=== PATIENT | female | born 1930 | race Caucasian/White ===

== ENCOUNTER 2017-06-01 15:18 | Inpatient (IN) | payer MEDICARE ==
[2017-06-01 16:20] LABS: ADD MAN DIFF? NO
[2017-06-01 16:24] LABS: BASO % 1 % (0-3); EOS % 1 % (0-3); HEMATOCRIT 38.2 % (36.0-47.0); HEMOGLOBIN 12.7 g/dL (12.0-15.5); LYMPH # 0.8 x10^3/uL (1.0-4.8); LYMPH % 12 % (24-48); MEAN CORPUSCULAR HEMOGLOBIN 32 pg (25-35); MEAN CORPUSCULAR HGB CONC 33 g/dL (31-37); MEAN CORPUSCULAR VOLUME 96 fL (79-100); MONO # 0.6 x10^3/uL (0.0-1.1); MONO % 10 % (0-9); NEUT # 5.1 x10^3uL (1.8-7.7); NEUT % 77 % (31-73); PLATELET COUNT 318 x10^3/uL (140-400); RED CELL DISTRIBUTION WIDTH 13.9 % (11.5-14.5); WHITE BLOOD COUNT 6.6 x10^3/uL (4.0-11.0)
[2017-06-01 16:33] LABS: ANION GAP 7 (6-14); BLOOD UREA NITROGEN 7 mg/dL (7-20); BUN/CREATININE RATIO 14 (6-20); CALCIUM 9.3 mg/dL (8.5-10.1); CARBON DIOXIDE 32 mmol/L (21-32); CHLORIDE 103 mmol/L (98-107); CREATININE 0.5 mg/dL (0.6-1.0); GLUCOSE 100 mg/dL (70-99); POTASSIUM 3.3 mmol/L (3.5-5.1); SODIUM 142 mmol/L (136-145)
[2017-06-01 16:38] LABS: ALBUMIN 3.2 g/dL (3.4-5.0); ALBUMIN/GLOBULIN RATIO 0.7 (1.0-1.7); ALK PHOS 96 U/L (46-116); ALT (SGPT) 20 U/L (14-59); AST (SGOT) 19 U/L (15-37); TOTAL BILIRUBIN 0.6 mg/dL (0.2-1.0); TOTAL PROTEIN 7.8 g/dL (6.4-8.2)
[2017-06-01 16:40] LABS: INFLUENZA A PATIENT NEGATIVE (NEGATIVE); INFLUENZA B PATIENT NEGATIVE (NEGATIVE); OBC FLU VALID
[2017-06-01 16:43] LABS: TROPONINI < 0.017 ng/mL (0.000-0.055)
[2017-06-01 17:00] LABS: BILIRUBIN,URINE NEGATIVE (NEG); COLOR,URINE YELLOW; GLUCOSE,URINE NEGATIVE (NEG); NITRITE,URINE NEGATIVE (NEG); PH,URINE 7.5; PROTEIN,URINE NEGATIVE (NEG-TRACE)
[2017-06-01 17:08] LABS: CLARITY,URINE HAZY
[2017-06-01 17:12] LABS: BACTERIA,URINE MODERATE /HPF (0-FEW); RBC,URINE 0 /HPF (0-2); SQUAMOUS EPITHELIAL CELL,UR OCC /LPF
[2017-06-01] MEDS ORDERED: ALPRAZolam 0.5 MG TABLET PO (18:15)
[2017-06-01] MEDS ORDERED: ONDANSETRON PF 4 MG/2 ML VIAL. IV ×2 (18:15→18:30)
[2017-06-01] MEDS: POTASSIUM CHLORIDE 20 MEQ TABLET.ER. PO (18:26)
[2017-06-01 19:25] LABS: SEDIMENTATION RATE 50 (0-25)
[2017-06-01] MEDS: LACTOBACILLUS RHAMNOSUS GG 1 CAPSULE. PO (22:37)
[2017-06-01] MEDS: ENOXAPARIN 30 MG/0.3 ML SYRINGE. SQ (22:38)
[2017-06-02 05:25] LABS: ADD MAN DIFF? NO
[2017-06-02 05:55] LABS: ANION GAP 5 (6-14); BLOOD UREA NITROGEN 9 mg/dL (7-20); CALCIUM 8.8 mg/dL (8.5-10.1); CARBON DIOXIDE 31 mmol/L (21-32); CHLORIDE 106 mmol/L (98-107); CREATININE 0.5 mg/dL (0.6-1.0); GLUCOSE 93 mg/dL (70-99); POTASSIUM 3.9 mmol/L (3.5-5.1); SODIUM 142 mmol/L (136-145)
[2017-06-02 06:04] LABS: BASO % 0 % (0-3); EOS # 0.1 x10^3/uL (0.0-0.7); EOS % 1 % (0-3); HEMATOCRIT 35.2 % (36.0-47.0); HEMOGLOBIN 11.6 g/dL (12.0-15.5); LYMPH # 0.9 x10^3/uL (1.0-4.8); LYMPH % 18 % (24-48); MEAN CORPUSCULAR HEMOGLOBIN 32 pg (25-35); MEAN CORPUSCULAR HGB CONC 33 g/dL (31-37); MEAN CORPUSCULAR VOLUME 96 fL (79-100); MONO # 0.6 x10^3/uL (0.0-1.1); MONO % 12 % (0-9); NEUT # 3.5 x10^3uL (1.8-7.7); NEUT % 68 % (31-73); PLATELET COUNT 312 x10^3/uL (140-400); RED BLOOD COUNT 3.67 x10^6/uL (3.50-5.40); RED CELL DISTRIBUTION WIDTH 14.1 % (11.5-14.5); WHITE BLOOD COUNT 5.2 x10^3/uL (4.0-11.0)
[2017-06-02] MEDS: hydroCHLOROthiazide 25 MG TABLET PO (08:20)
[2017-06-02] MEDS: VITAMIN B12,B9,B6 COMPLEX 1 TABLET. PO (08:20)
[2017-06-02] MEDS: LISINOPRIL 20 MG TABLET PO (08:22)
[2017-06-02] MEDS: amLODIPine BESYLATE 10 MG TABLET PO (08:23)
[2017-06-02] MEDS: LACTOBACILLUS RHAMNOSUS GG 1 CAPSULE. PO ×2 (08:23→20:19)
[2017-06-02] MEDS: IV NORMAL SALINE 1000ML BAG 1,000 ML IV (12:33)
[2017-06-02] MEDS: VITS A & D/LANOLIN TOPICAL OINTMENT 56GM TUBE. TP (13:55)
[2017-06-02] MEDS: ACETAMINOPHEN 500 MG TABLET PO (16:13)
[2017-06-02] MEDS: cefTRIAXone IV Push 1 GM VIAL. IVP (17:33)
[2017-06-02] MEDS: ENOXAPARIN 30 MG/0.3 ML SYRINGE. SQ (20:23)
[2017-06-03] MEDS: IV NORMAL SALINE 1000ML BAG 1,000 ML IV ×2 (02:50→21:55)
[2017-06-03 06:08] LABS: ADD MAN DIFF? NO
[2017-06-03 06:20] LABS: BASO % 1 % (0-3); EOS # 0.1 x10^3/uL (0.0-0.7); EOS % 2 % (0-3); HEMATOCRIT 33.7 % (36.0-47.0); HEMOGLOBIN 10.9 g/dL (12.0-15.5); LYMPH % 21 % (24-48); MEAN CORPUSCULAR HEMOGLOBIN 31 pg (25-35); MEAN CORPUSCULAR HGB CONC 32 g/dL (31-37); MEAN CORPUSCULAR VOLUME 97 fL (79-100); MONO # 0.6 x10^3/uL (0.0-1.1); MONO % 12 % (0-9); NEUT # 3.2 x10^3uL (1.8-7.7); NEUT % 65 % (31-73); PLATELET COUNT 251 x10^3/uL (140-400); RED BLOOD COUNT 3.49 x10^6/uL (3.50-5.40); WHITE BLOOD COUNT 4.9 x10^3/uL (4.0-11.0)
[2017-06-03 06:52] LABS: ANION GAP 6 (6-14); BLOOD UREA NITROGEN 20 mg/dL (7-20); CALCIUM 8.6 mg/dL (8.5-10.1); CARBON DIOXIDE 27 mmol/L (21-32); CHLORIDE 109 mmol/L (98-107); CREATININE 0.6 mg/dL (0.6-1.0); GFR 94.8; GLUCOSE 83 mg/dL (70-99); SODIUM 142 mmol/L (136-145)
[2017-06-03] MEDS: LISINOPRIL 20 MG TABLET PO (09:00)
[2017-06-03] MEDS: amLODIPine BESYLATE 10 MG TABLET PO (09:00)
[2017-06-03] MEDS: hydroCHLOROthiazide 25 MG TABLET PO (09:00)
[2017-06-03] MEDS: VITAMIN B12,B9,B6 COMPLEX 1 TABLET. PO (09:42)
[2017-06-03] MEDS: LACTOBACILLUS RHAMNOSUS GG 1 CAPSULE. PO ×2 (09:43→20:53)
[2017-06-03] MEDS: cefTRIAXone IV Push 1 GM VIAL. IVP (17:31)
[2017-06-03] MEDS: ENOXAPARIN 30 MG/0.3 ML SYRINGE. SQ (20:54)
[2017-06-04] MEDS: IV NORMAL SALINE 1000ML BAG 1,000 ML IV ×2 (04:00→11:34)
[2017-06-04 05:44] LABS: ADD MAN DIFF? NO
[2017-06-04 06:02] LABS: BASO % 1 % (0-3); EOS # 0.1 x10^3/uL (0.0-0.7); EOS % 2 % (0-3); HEMATOCRIT 32.2 % (36.0-47.0); HEMOGLOBIN 10.9 g/dL (12.0-15.5); LYMPH # 0.9 x10^3/uL (1.0-4.8); LYMPH % 17 % (24-48); MEAN CORPUSCULAR HEMOGLOBIN 32 pg (25-35); MEAN CORPUSCULAR HGB CONC 34 g/dL (31-37); MEAN CORPUSCULAR VOLUME 96 fL (79-100); MONO # 0.5 x10^3/uL (0.0-1.1); MONO % 10 % (0-9); NEUT # 3.7 x10^3uL (1.8-7.7); NEUT % 71 % (31-73); PLATELET COUNT 265 x10^3/uL (140-400); RED BLOOD COUNT 3.36 x10^6/uL (3.50-5.40); RED CELL DISTRIBUTION WIDTH 13.7 % (11.5-14.5); WHITE BLOOD COUNT 5.2 x10^3/uL (4.0-11.0)
[2017-06-04 06:21] LABS: ANION GAP 6 (6-14); BLOOD UREA NITROGEN 13 mg/dL (7-20); CALCIUM 8.4 mg/dL (8.5-10.1); CARBON DIOXIDE 28 mmol/L (21-32); CHLORIDE 108 mmol/L (98-107); CREATININE 0.5 mg/dL (0.6-1.0); GLUCOSE 88 mg/dL (70-99); POTASSIUM 3.8 mmol/L (3.5-5.1); SODIUM 142 mmol/L (136-145)
[2017-06-04] MEDS: hydroCHLOROthiazide 25 MG TABLET PO (08:35)
[2017-06-04] MEDS: VITAMIN B12,B9,B6 COMPLEX 1 TABLET. PO (08:35)
[2017-06-04] MEDS: LACTOBACILLUS RHAMNOSUS GG 1 CAPSULE. PO (08:35)
[2017-06-04] MEDS: LISINOPRIL 20 MG TABLET PO (08:36)
== END 2017-06-04 16:50 | DRG 592 ==
LOC: ER 15:18 → 5 SOUTH 18:00
DX: L89.151 Pressure ulcer of sacral region, stage 1 (principal); R53.2 Functional quadriplegia; N39.0 Urinary tract infection, site not specified; I73.9 Peripheral vascular disease, unspecified; E44.1 Mild protein-calorie malnutrition; Z68.1 Body mass index [BMI] 19.9 or less, adult; R62.7 Adult failure to thrive; E87.6 Hypokalemia; B35.1 Tinea unguium; I10 Essential (primary) hypertension; L60.0 Ingrowing nail; L60.1 Onycholysis; R32 Unspecified urinary incontinence; Z96.649 Presence of unspecified artificial hip joint; Z90.710 Acquired absence of both cervix and uterus; Z91.81 History of falling; Z85.3 Personal history of malignant neoplasm of breast; Z99.3 Dependence on wheelchair
CPT/HCPCS: 36415; 51701; 71045; 80048; 80053; 81001; 84484; 85025; 85651; 87040; 87086; 87186; 87804; 87804-59; 92610-GN; 93005; 96365; 97116-GP; 97162-GP; 97166-GO; 99285; 99285-25; J0690; J0696; J1650; J7030

== ENCOUNTER 2017-08-21 19:38 | Inpatient (IN) | payer MEDICARE ==
[2017-08-21 21:13] LABS: ADD MAN DIFF? NO
[2017-08-21 21:15] LABS: BASO % 1 % (0-3); EOS % 0 % (0-3); HEMATOCRIT 34.7 % (36.0-47.0); HEMOGLOBIN 12.1 g/dL (12.0-15.5); LYMPH # 0.6 x10^3/uL (1.0-4.8); LYMPH % 8 % (24-48); MEAN CORPUSCULAR HEMOGLOBIN 33 pg (25-35); MEAN CORPUSCULAR HGB CONC 35 g/dL (31-37); MEAN CORPUSCULAR VOLUME 94 fL (79-100); MONO # 0.5 x10^3/uL (0.0-1.1); MONO % 7 % (0-9); NEUT # 5.8 x10^3uL (1.8-7.7); NEUT % 84 % (31-73); PLATELET COUNT 296 x10^3/uL (140-400); RED BLOOD COUNT 3.69 x10^6/uL (3.50-5.40)
[2017-08-21 21:28] LABS: ANION GAP 13 (6-14); BLOOD UREA NITROGEN 16 mg/dL (7-20); CALCIUM 10.2 mg/dL (8.5-10.1); CARBON DIOXIDE 29 mmol/L (21-32); CHLORIDE 106 mmol/L (98-107); CREATININE 0.7 mg/dL (0.6-1.0); GFR 79.3; GLUCOSE 70 mg/dL (70-99); POTASSIUM 3.4 mmol/L (3.5-5.1); SODIUM 148 mmol/L (136-145)
[2017-08-21 21:34] LABS: ALBUMIN 3.1 g/dL (3.4-5.0); ALK PHOS 89 U/L (46-116); ALT (SGPT) 14 U/L (14-59); AST (SGOT) 24 U/L (15-37); DIRECT BILIRUBIN 0.5 mg/dL (0.0-0.2); LIPASE 64 U/L (73-393); MAGNESIUM 1.7 mg/dL (1.8-2.4); TOTAL BILIRUBIN 1.2 mg/dL (0.2-1.0); TOTAL PROTEIN 7.6 g/dL (6.4-8.2)
[2017-08-21] MEDS: CLINDAMYCIN 600MG PREMIX 50 ML IV (21:35)
[2017-08-21 21:36] LABS: TROPONINI < 0.017 ng/mL (0.000-0.055)
[2017-08-21] MEDS: IV NORMAL SALINE 1000ML BAG 1,000 ML IV (21:36)
[2017-08-21 21:42] LABS: CKMB INDEX 2.3 % (0-4); CKMB MASS 2.4 ng/mL (0.0-3.6); CREATINE KINASE 103 U/L (26-192)
[2017-08-21 21:42] LABS: NT-PRO BNP 829 pg/mL (0-449); THYROID STIM HORMONE (TSH) 2.566 uIU/mL (0.358-3.74)
[2017-08-21] MEDS ORDERED: ONDANSETRON PF 4 MG/2 ML VIAL. IV (22:15)
[2017-08-21] MEDS: IV DEXTROSE 5 %-0.45 % NACL 1,000 ML IV (23:01)
[2017-08-22] MEDS ORDERED: levOFLOXacin PER PHARMACY. MC (00:30)
[2017-08-22] MEDS: cefTRIAXone IV Push 1 GM VIAL. IVP (00:46)
[2017-08-22 04:52] LABS: ADD MAN DIFF? NO
[2017-08-22 05:15] LABS: BASO % 1 % (0-3); EOS % 1 % (0-3); HEMATOCRIT 28.8 % (36.0-47.0); HEMOGLOBIN 9.9 g/dL (12.0-15.5); LYMPH # 0.9 x10^3/uL (1.0-4.8); LYMPH % 16 % (24-48); MEAN CORPUSCULAR HEMOGLOBIN 32 pg (25-35); MEAN CORPUSCULAR HGB CONC 34 g/dL (31-37); MEAN CORPUSCULAR VOLUME 94 fL (79-100); MONO # 0.5 x10^3/uL (0.0-1.1); MONO % 9 % (0-9); NEUT # 4.2 x10^3uL (1.8-7.7); NEUT % 74 % (31-73); PLATELET COUNT 236 x10^3/uL (140-400); RED BLOOD COUNT 3.06 x10^6/uL (3.50-5.40); RED CELL DISTRIBUTION WIDTH 13.8 % (11.5-14.5); WHITE BLOOD COUNT 5.7 x10^3/uL (4.0-11.0)
[2017-08-22 05:34] LABS: ANION GAP 7 (6-14); BLOOD UREA NITROGEN 11 mg/dL (7-20); CALCIUM 9.1 mg/dL (8.5-10.1); CARBON DIOXIDE 30 mmol/L (21-32); CHLORIDE 105 mmol/L (98-107); CREATININE 0.7 mg/dL (0.6-1.0); GFR 79.3; GLUCOSE 79 mg/dL (70-99); SODIUM 142 mmol/L (136-145)
[2017-08-22] MEDS: CLINDAMYCIN 600MG PREMIX 50 ML IV ×3 (05:39→20:40)
[2017-08-22 05:47] LABS: POTASSIUM 2.8 mmol/L (3.5-5.1)
[2017-08-22] MEDS: POTASSIUM CHLORIDE 20 MEQ TABLET.ER. PO ×2 (08:32→09:15)
[2017-08-22 10:30] LABS: % SAT IRON 30 % (15-34); IRON,SERUM 52 ug/dL (50-170)
[2017-08-22] MEDS: MULTIVITAMIN with MINERAL TABLET. PO (10:31)
[2017-08-22] MEDS: LISINOPRIL 10 MG TABLET PO (10:31)
[2017-08-22] MEDS: FLUTICASONE 50MCG/NASAL SPRAY 16GM BOTTLE. NS (10:32)
[2017-08-22] MEDS: MAGNESIUM SULFATE 2GM 50 ML IV (15:38)
[2017-08-22] MEDS: ENOXAPARIN 30 MG/0.3 ML SYRINGE. SQ (15:38)
[2017-08-22] MEDS: LACTOBACILLUS RHAMNOSUS GG 1 CAPSULE. PO (20:40)
[2017-08-23] MEDS: cefTRIAXone IV Push 1 GM VIAL. IVP (00:11)
[2017-08-23 03:48] LABS: HEMATOCRIT 28.3 % (36.0-47.0); HEMOGLOBIN 9.9 g/dL (12.0-15.5); MEAN CORPUSCULAR HEMOGLOBIN 33 pg (25-35); MEAN CORPUSCULAR HGB CONC 35 g/dL (31-37); MEAN CORPUSCULAR VOLUME 93 fL (79-100); PLATELET COUNT 218 x10^3/uL (140-400); RED BLOOD COUNT 3.03 x10^6/uL (3.50-5.40); RED CELL DISTRIBUTION WIDTH 13.8 % (11.5-14.5)
[2017-08-23 05:42] LABS: ALBUMIN/GLOBULIN RATIO 0.6 (1.0-1.7); ALK PHOS 75 U/L (46-116); ALT (SGPT) 11 U/L (14-59); ANION GAP 5 (6-14); AST (SGOT) 19 U/L (15-37); BLOOD UREA NITROGEN 13 mg/dL (7-20); BUN/CREATININE RATIO 16 (6-20); CALCIUM 9.2 mg/dL (8.5-10.1); CARBON DIOXIDE 32 mmol/L (21-32); CHLORIDE 105 mmol/L (98-107); CREATININE 0.8 mg/dL (0.6-1.0); GLUCOSE 85 mg/dL (70-99); POTASSIUM 3.1 mmol/L (3.5-5.1); SODIUM 142 mmol/L (136-145); TOTAL BILIRUBIN 0.3 mg/dL (0.2-1.0); TOTAL PROTEIN 5.4 g/dL (6.4-8.2)
[2017-08-23] MEDS: CLINDAMYCIN 600MG PREMIX 50 ML IV ×3 (06:00→21:45)
[2017-08-23] MEDS: MULTIVITAMIN with MINERAL TABLET. PO (08:50)
[2017-08-23] MEDS: FLUTICASONE 50MCG/NASAL SPRAY 16GM BOTTLE. NS (08:50)
[2017-08-23] MEDS: LISINOPRIL 10 MG TABLET PO (08:50)
[2017-08-23] MEDS: LACTOBACILLUS RHAMNOSUS GG 1 CAPSULE. PO ×2 (08:50→20:46)
[2017-08-23 09:15] LABS: VITAMIN-B12 1044 pg/mL (247-911)
[2017-08-23 09:16] LABS: FOLATE 11.58 ng/ml (3.2-20.0)
[2017-08-23] MEDS: ENOXAPARIN 30 MG/0.3 ML SYRINGE. SQ (15:08)
[2017-08-23] MEDS: POTASSIUM CHLORIDE 20 MEQ TABLET.ER. PO (18:05)
[2017-08-24] MEDS: cefTRIAXone IV Push 1 GM VIAL. IVP (00:25)
[2017-08-24] MEDS: CLINDAMYCIN 600MG PREMIX 50 ML IV (05:40)
[2017-08-24] MEDS: MULTIVITAMIN with MINERAL TABLET. PO (08:21)
[2017-08-24] MEDS: LISINOPRIL 10 MG TABLET PO (08:21)
[2017-08-24] MEDS: FLUTICASONE 50MCG/NASAL SPRAY 16GM BOTTLE. NS (08:22)
[2017-08-24] MEDS: LACTOBACILLUS RHAMNOSUS GG 1 CAPSULE. PO ×2 (08:22→21:41)
[2017-08-24 09:04] LABS: HEMATOCRIT 31.2 % (36.0-47.0); HEMOGLOBIN 10.5 g/dL (12.0-15.5); MEAN CORPUSCULAR HEMOGLOBIN 32 pg (25-35); MEAN CORPUSCULAR HGB CONC 34 g/dL (31-37); MEAN CORPUSCULAR VOLUME 94 fL (79-100); PLATELET COUNT 243 x10^3/uL (140-400); RED CELL DISTRIBUTION WIDTH 14.3 % (11.5-14.5); WHITE BLOOD COUNT 5.2 x10^3/uL (4.0-11.0)
[2017-08-24 09:30] LABS: ALBUMIN 2.1 g/dL (3.4-5.0); ALBUMIN/GLOBULIN RATIO 0.6 (1.0-1.7); ALK PHOS 67 U/L (46-116); ALT (SGPT) 14 U/L (14-59); ANION GAP 3 (6-14); AST (SGOT) 21 U/L (15-37); BLOOD UREA NITROGEN 12 mg/dL (7-20); BUN/CREATININE RATIO 20 (6-20); CARBON DIOXIDE 32 mmol/L (21-32); CHLORIDE 108 mmol/L (98-107); CREATININE 0.6 mg/dL (0.6-1.0); GFR 94.8; GLUCOSE 82 mg/dL (70-99); POTASSIUM 3.7 mmol/L (3.5-5.1); SODIUM 143 mmol/L (136-145); TOTAL BILIRUBIN 0.3 mg/dL (0.2-1.0); TOTAL PROTEIN 5.9 g/dL (6.4-8.2)
[2017-08-24] MEDS ORDERED: AMPICILLIN/SULBACTAM 3 GM in IV NORMAL SALINE 100ML 100 ML IV (12:00)
[2017-08-24] MEDS: AMPICILLIN/SULBACTAM IV Push 3 GM VIAL. IVP ×2 (12:19→17:43)
[2017-08-24] MEDS: ENOXAPARIN 30 MG/0.3 ML SYRINGE. SQ (14:18)
[2017-08-25] MEDS: AMPICILLIN/SULBACTAM IV Push 3 GM VIAL. IVP ×5 (01:39→20:21)
[2017-08-25 04:15] LABS: HEMATOCRIT 31.7 % (36.0-47.0); HEMOGLOBIN 10.9 g/dL (12.0-15.5); MEAN CORPUSCULAR HEMOGLOBIN 32 pg (25-35); MEAN CORPUSCULAR HGB CONC 34 g/dL (31-37); MEAN CORPUSCULAR VOLUME 94 fL (79-100); PLATELET COUNT 260 x10^3/uL (140-400); RED BLOOD COUNT 3.37 x10^6/uL (3.50-5.40); RED CELL DISTRIBUTION WIDTH 14.2 % (11.5-14.5); WHITE BLOOD COUNT 5.2 x10^3/uL (4.0-11.0)
[2017-08-25 04:36] LABS: ANION GAP 3 (6-14); BLOOD UREA NITROGEN 11 mg/dL (7-20); CALCIUM 8.7 mg/dL (8.5-10.1); CARBON DIOXIDE 35 mmol/L (21-32); CHLORIDE 107 mmol/L (98-107); CREATININE 0.6 mg/dL (0.6-1.0); GFR 94.8; GLUCOSE 87 mg/dL (70-99); POTASSIUM 3.7 mmol/L (3.5-5.1); SODIUM 145 mmol/L (136-145)
[2017-08-25 05:25] LABS: SEDIMENTATION RATE 30 (0-25)
[2017-08-25] MEDS: LACTOBACILLUS RHAMNOSUS GG 1 CAPSULE. PO ×2 (08:42→20:21)
[2017-08-25] MEDS: MULTIVITAMIN with MINERAL TABLET. PO (08:42)
[2017-08-25] MEDS: LISINOPRIL 10 MG TABLET PO (08:43)
[2017-08-25] MEDS: FLUTICASONE 50MCG/NASAL SPRAY 16GM BOTTLE. NS (08:44)
[2017-08-25] MEDS: ENOXAPARIN 30 MG/0.3 ML SYRINGE. SQ (12:12)
[2017-08-26 04:34] LABS: HEMATOCRIT 30.1 % (36.0-47.0); HEMOGLOBIN 10.2 g/dL (12.0-15.5); MEAN CORPUSCULAR HEMOGLOBIN 32 pg (25-35); MEAN CORPUSCULAR HGB CONC 34 g/dL (31-37); MEAN CORPUSCULAR VOLUME 95 fL (79-100); PLATELET COUNT 285 x10^3/uL (140-400); RED BLOOD COUNT 3.18 x10^6/uL (3.50-5.40); RED CELL DISTRIBUTION WIDTH 14.5 % (11.5-14.5); WHITE BLOOD COUNT 5.5 x10^3/uL (4.0-11.0)
[2017-08-26 04:49] LABS: ALBUMIN/GLOBULIN RATIO 0.5 (1.0-1.7); ALK PHOS 63 U/L (46-116); ALT (SGPT) 16 U/L (14-59); ANION GAP 1 (6-14); AST (SGOT) 21 U/L (15-37); BLOOD UREA NITROGEN 14 mg/dL (7-20); BUN/CREATININE RATIO 23 (6-20); CALCIUM 9.3 mg/dL (8.5-10.1); CARBON DIOXIDE 36 mmol/L (21-32); CHLORIDE 106 mmol/L (98-107); CREATININE 0.6 mg/dL (0.6-1.0); GFR 94.8; GLUCOSE 91 mg/dL (70-99); POTASSIUM 3.4 mmol/L (3.5-5.1); SODIUM 143 mmol/L (136-145); TOTAL BILIRUBIN 0.4 mg/dL (0.2-1.0); TOTAL PROTEIN 5.8 g/dL (6.4-8.2)
[2017-08-26] MEDS: AMPICILLIN/SULBACTAM IV Push 3 GM VIAL. IVP ×4 (05:39→18:17)
[2017-08-26 07:55] LABS: SEDIMENTATION RATE 56 (0-25)
[2017-08-26] MEDS: FLUTICASONE 50MCG/NASAL SPRAY 16GM BOTTLE. NS ×2 (09:02→09:37)
[2017-08-26] MEDS: LACTOBACILLUS RHAMNOSUS GG 1 CAPSULE. PO ×2 (09:02→22:30)
[2017-08-26] MEDS: MULTIVITAMIN with MINERAL TABLET. PO (09:02)
[2017-08-26] MEDS: LISINOPRIL 10 MG TABLET PO (09:03)
[2017-08-26] MEDS: ENOXAPARIN 30 MG/0.3 ML SYRINGE. SQ (15:10)
[2017-08-27] MEDS: AMPICILLIN/SULBACTAM IV Push 3 GM VIAL. IVP ×2 (01:11→06:49)
[2017-08-27] MEDS: cloNIDine HCL 0.1 MG TABLET PO (04:55)
[2017-08-27] MEDS: LACTOBACILLUS RHAMNOSUS GG 1 CAPSULE. PO (08:57)
[2017-08-27] MEDS: LISINOPRIL 10 MG TABLET PO (08:57)
[2017-08-27] MEDS: MULTIVITAMIN with MINERAL TABLET. PO (08:57)
[2017-08-27] MEDS: FLUTICASONE 50MCG/NASAL SPRAY 16GM BOTTLE. NS (08:57)
== END 2017-08-27 11:40 | DRG 602 ==
LOC: ER 19:38 → 4 NORTH 22:03
DX: L03.116 Cellulitis of left lower limb (principal); E43 Unspecified severe protein-calorie malnutrition; E86.0 Dehydration; I27.20 Pulmonary hypertension, unspecified; D63.8 Anemia in other chronic diseases classified elsewhere; E83.42 Hypomagnesemia; I07.1 Rheumatic tricuspid insufficiency; L03.115 Cellulitis of right lower limb; E87.6 Hypokalemia; F41.9 Anxiety disorder, unspecified; R62.7 Adult failure to thrive; Z96.641 Presence of right artificial hip joint; G25.0 Essential tremor; L98.499 Non-pressure chronic ulcer of skin of other sites with unspecified severity; H91.90 Unspecified hearing loss, unspecified ear; I10 Essential (primary) hypertension; Z85.3 Personal history of malignant neoplasm of breast; Z90.710 Acquired absence of both cervix and uterus; Z68.21 Body mass index [BMI] 21.0-21.9, adult
CPT/HCPCS: 36415; 71045; 80048; 80053; 80076; 82553; 82607; 82746; 83540; 83550; 83690; 83735; 83880; 84443; 84484; 85025; 85027; 85651; 87040; 93005; 93306; 96360; 96361; 97110-GO; 97162-GP; 97165-GO; 97530-GP; 97535-GO; 99285; 99285-25; J0295; J0696; J1650; J1956; J3475; J3490; J7030